=== PATIENT | male | born 1965 | race Caucasian/White ===

== ENCOUNTER 2016-07-25 18:37 | Emergency (ER) | payer OTHER ==
--- NOTE | 2016-07-25 18:43 | UCPHY ---
H & P Patient Type: New HPI/ROS: CHIEF COMPLAINT: Right 2nd finger laceration. HISTORY OF PRESENT ILLNESS: The patient is a 51-year-old male who presents with a right 2nd finger laceration secondary to fixing his car and getting his finger struck in the frame when the car slipped, [place] He applied pressure to the wound immediately and the bleeding has been well-controlled. He has no numbness, paresthesias, or weakness in the finger. He has full mobility and range of motion. He has no other complaints at this time. Through triage they noted he was tachycardic and remained so at the time of my clinical exam. In talking to him we cannot find any particular source of the tachycardia. He has had no for recent fluid loss such as nausea vomiting or diarrhea, no hematochezia melena or bright blood per rectum, no excessive thirst , no nocturia beyond his baseline as 1 would see if 52-year-old. He has been taking fluids well without any difficulties. Denies stimulants. He does note that he had a 1 drink maybe to the other night but usually drinks less than once weekly, without ever experiencing shakes REVIEW OF SYSTEMS: Constitutional: No fever, no chills. Though my tactile exam he does feel warm and elevate his temperature is 37.4 ENT: No sore throat. Cardiovascular: No chest pain, no palpitations, he is unaware of his faster rate of 126, which we did let settle down though he did not seem nurse and still remained 102,826. Respiratory: No cough, no shortness of breath, no wheezing. Gastrointestinal: No nausea vomiting or diarrhea. No abdominal pain. Genitourinary: No hematuria or frequency. Musculoskeletal: No back pain. Skin: Wound as above Neurological: No headache. 10 point ROS otherwise negative Past Medical/Surgical History: GERD, appendectomy. Social History: Does not abuse alcohol or drugs. Physical Exam: General Appearance: Alert, no distress. Afebrile. Normal phonation. No respiratory distress. Respiratory: There are no retractions, lungs are clear to auscultation. Cardiovascular: Tachycardic, Regular rate and rhythm, without murmur Neurological: Ox3. No motor weakness. Sensation intact. Gait nl. Musculoskeletal: No joint swelling. Extremities: Right hand: laceration along dorsal aspect of 2nd finger over middle phalanx. Sensation intact. Good range of motion. Strong extension to resistance. Psychiatric: Patient is oriented X 3, there is no agitation Constitutional: Initial Vital Signs Temperature (C) 36.7 C 07/25/16 18:47 Heart Rate 130 H 07/25/16 18:47 Respiratory Rate 20 07/25/16 18:47 Blood Pressure 144/107 H 07/25/16 18:47 O2 Sat (%) 92 07/25/16 18:47 O2 Delivery Mode Room Air Allergies/Adverse Reactions: No Known Allergies Allergy (Verified 07/25/16 18:50) Home Medications: Medication Instructions Recorded Cephalexin [Keflex (*)] 500 mg PO TID #9 cap 07/25/16 Tums 500MG (*) 07/25/16 Medical Decision Making - Diagnostics EKG Interpretation: The 12 lead EKG was interpreted by myself. See hard copy and/or "tracemaster" electronic copy for interpretation. Sinus tachycardia rate 121. Probable left atrial abnormality. Imaging: Imaging Impressions Chest X-Ray 07/25/16 19:36 Impression: Clear lungs. No acute process. X-ray interpretation reviewed as well as the films reviewed on the [facility] system Procedures: Procedure: Laceration repair. Verbal consent was obtained from the patient. The linear laceration on the right second finger was anesthetized a digital block with using 1% lidocaine without epinephrine. The wound was cleaned with standard ED protocol, draped and explored to its base with a gloved finger. There was indeed a small rent to the top of the dorsal tendon at the extensor duarte which was partial thickness. 0.5 mm. The wound was repaired in single layer technique. The wound repair was simple. The procedure was performed by myself. ED Course/Re-evaluation: 51-year-old male presents with right 2nd finger laceration secondary to cutting it on a car frame he was doing maintenance on. on exam his motor and sensory systems are intact. He has no weakness or numbness in the finger. 2-point discrimination is intact. He has strong extension in response to resistance. During the time of my exam his heart rate was 132, however he denied using stimulants other than caffeine and believes it is due to being in a doctor's office. His heart rate is regular on exam. I numbed the finger prior to cleaning and suturing (see Procedure note for details). 1937: After my suturing the patient has remained tachycardic. I did not approached him about a workup for cardiac causes at that time when he 1st became and as he was might settling down. Furthermore I was worried he might get a little agitated at that. It was only hours later when he became agitated as he had been here for so long. Furthermore I told him about starting some antibiotics but I was planning to give him a Keflex to go at discharge. It seemed to this he thought this was being for gotten. Nonetheless he agreed to the agreed to a cardiac workup including electrolytes, chest x-ray, and EKG. He reports that he gets up twice per night to urinate but denies recent increased polyuria or polydipsia that would be suggestive of diabetes. I reviewed the patient's laboratory studies. WBC elevated at 15k, It was at that time we found a low-grade fever of 37.4. However there is no focal symptomatology to suggest an underlying etiology. He had no dysuria. There is no cough or phlegm or shortness of breath. No sinus discomfort. Lactic acid negative at 1.7. I did take a carotid massage as well as Valsalva to seek help some rate slowing to perhaps see if this was flutter with 2-1 block but this was not helpful I reviewed the patient's chest x-ray independently on the PACS system. Please see Imaging section for radiologist report. - Data Points Laboratory Results: Laboratory Results 07/25/16 19:55 07/25/16 19:55 07/25/16 07/25/16 07/25/16 19:55 19:55 19:55 WBC RBC Hgb Hct MCV MCH MCHC RDW Plt Count MPV Neut % (Auto) Lymph % (Auto) Sumner % (Auto) Eos % (Auto) Baso % (Auto) Nucleat RBC Rel Count Absolute Neuts (auto) Absolute Lymphs (auto) Absolute Monos (auto) Absolute Eos (auto) Absolute Basos (auto) Absolute Nucleated RBC Immature Gran % Immature Gran # VBG Lactic Acid 1.7 mmol/L mmol/L (0.7-2.1) Sodium 142 mEq/L mEq/L (134-144) Potassium 3.9 mEq/L mEq/L (3.5-5.2) Chloride 104 mEq/L mEq/L (97-110) Carbon Dioxide 22 mEq/l mEq/l (22-31) Anion Gap 16 mEq/L mEq/L (8-16) BUN 20 mg/dL mg/dL (7-23) Creatinine 0.8 mg/dL mg/dL (0.7-1.3) Estimated GFR > 60 Glucose 114 mg/dL H mg/dL (70-100) Calcium 9.9 mg/dL mg/dL (8.5-10.4) TSH 0.979 uIU/mL uIU/mL (0.465-4.680) 07/25/16 19:55 WBC 15.38 10^3/uL H 10^3/uL (3.80-9.50) RBC 6.09 10^6/uL 10^6/uL (4.40-6.38) Hgb 17.9 g/dL H g/dL (13.7-17.5) Hct 50.2 % % (40.0-51.0) MCV 82.4 fL fL (81.5-99.8) MCH 29.4 pg pg (27.9-34.1) MCHC 35.7 g/dL g/dL (32.4-36.7) RDW 13.0 % % (11.5-15.2) Plt Count 302 10^3/uL 10^3/uL (150-400) MPV 10.7 fL fL (8.7-11.7) Neut % (Auto) 75.1 % H % (39.3-74.2) Lymph % (Auto) 17.8 % % (15.0-45.0) Sumner % (Auto) 5.3 % % (4.5-13.0) Eos % (Auto) 0.6 % % (0.6-7.6) Baso % (Auto) 0.5 % % (0.3-1.7) Nucleat RBC Rel Count 0.0 % % (0.0-0.2) Absolute Neuts (auto) 11.56 10^3/uL H 10^3/uL (1.70-6.50) Absolute Lymphs (auto) 2.74 10^3/uL 10^3/uL (1.00-3.00) Absolute Monos (auto) 0.81 10^3/uL H 10^3/uL (0.30-0.80) Absolute Eos (auto) 0.09 10^3/uL 10^3/uL (0.03-0.40) Absolute Basos (auto) 0.07 10^3/uL 10^3/uL (0.02-0.10) Absolute Nucleated RBC 0.00 10^3/uL 10^3/uL (0-0.01) Immature Gran % 0.7 % % (0.0-1.1) Immature Gran # 0.11 10^3/uL H 10^3/uL (0.00-0.10) VBG Lactic Acid Sodium Potassium Chloride Carbon Dioxide Anion Gap BUN Creatinine Estimated GFR Glucose Calcium TSH Medications Given: Discontinued Medications Cephalexin (Keflex 500 Mg Prepack#4) 1 btl TAKEHOME EDNOW ONE PRN Reason: Protocol Stop: 07/25/16 21:07 Last Admin: 07/25/16 21:13 Dose: 1 btl Diphtheria/Tetanus/Acell Pertussis (Boostrix) 0.5 ml IM .ONCE ONE Stop: 07/25/16 21:03 Last Admin: 07/25/16 21:05 Dose: 0.5 ml Ketorolac Tromethamine (Toradol) 15 mg IVP EDNOW ONE Stop: 07/25/16 21:05 Last Admin: 07/25/16 21:08 Dose: 15 mg Departure - Departure Disposition: Home, Routine, Self-Care Clinical Impression: Tachycardia Finger laceration Qualifiers: Encounter type: initial encounter Qualified Code(s): S61.219A - Laceration without foreign body of unspecified finger without damage to nail, initial encounter Condition: Good Instructions: Finger Laceration (ED) Additional Instructions: Keep wound clean with warm, soapy water. You can shower with the stitches but avoid prolonged immersion of stitches in water. Return in 10 days for suture removal. He will need to keep the finger splinted for 2 weeks, do not bend the finger in that time frame In the meantime if there is any redness extending beyond the wound itself or increased pain he need to come back at that may reflect an ongoing infection Do take extra fluids in the next 24 hours at that may slow down her heart rate. We will have the results for a thyroid study done by the time to arrive home, call us at that point in time to get the final results. Return if in the next day or 2 there is a more clear reason for the low-grade fever that had here such as a productive cough, body aches, ear pain, sore throat, difficulty urinating, or swollen glands. Tylenol and/or ibuprofen in combination will work well for the pain from the wound 2 finger Return in the meantime for any serious worsening of condition. Referrals: NONE *PRIMARY CARE P,. [Primary Care Provider] - As per Instructions Prescriptions: Cephalexin [Keflex (*)] 500 mg PO TID #9 cap - PQRS PQRS Measurement: N/A. Report Scribed for: Inderjit Sims Report Scribed by: Jordan Tim Date of Report: 07/25/16 Time of Report: 18:41
[2016-07-25 18:50] VITALS: TEMP 98.1
[2016-07-25 20:03] LABS: % IMMATURE GRANULYOCYTES 0.7 % (0.0-1.1); ABSOLUTE IMMATURE GRANULOCYTES 0.11 10^3/uL (0.00-0.10); ADD DIFF? NO; ADD MORPH? NO; ADD SCAN? NO; ATYPICAL LYMPHOCYTE FLAG 0 (0-99); FRAGMENT RBC FLAG 0 (0-99); HEMATOCRIT 50.2 % (40.0-51.0); HEMOGLOBIN 17.9 g/dL (13.7-17.5); LEFT SHIFT FLG 0 (0-99); LIPEMIA HEMOLYSIS FLAG 90 (0-99); MEAN CELL HEMOGLOBIN 29.4 pg (27.9-34.1); MEAN CELL HEMOGLOBIN CONCENTR. 35.7 g/dL (32.4-36.7); MEAN CELL VOLUME 82.4 fL (81.5-99.8); MEAN PLATELET VOLUME 10.7 fL (8.7-11.7); PLATELET CLUMPS FLAG 10 (0-99); PLATELET COUNT 302 10^3/uL (150-400); RED BLOOD CELL COUNT 6.09 10^6/uL (4.40-6.38)
[2016-07-25 20:14] LABS: ANION GAP 16 mEq/L (8-16); CALCIUM 9.9 mg/dL (8.5-10.4); CARBON DIOXIDE 22 mEq/l (22-31); CHLORIDE 104 mEq/L (97-110); CREATININE 0.8 mg/dL (0.7-1.3); GLOMERULAR FILTRATION RATE > 60; GLUCOSE 114 mg/dL (70-100); POTASSIUM 3.9 mEq/L (3.5-5.2); SODIUM 142 mEq/L (134-144)
--- NOTE | 2016-07-25 20:21 | CPEKG ---
Heart Rate: 121 RR Interval: 496 P-R Interval: 180 QRSD Interval: 88 QT Interval: 296 QTC Interval: 420 P [place]: 37 QRS [place]: 30 T Wave [place]: 42 EKG Severity - BORDERLINE ECG - EKG Impression: SINUS TACHYCARDIA EKG Impression: PROBABLE LEFT ATRIAL ABNORMALITY Electronically Signed By: Inderjit Sims 26-Jul-2016 00:20:35
[2016-07-25] MEDS ORDERED: TDAP ADULT 0.5 ML INJ (BOOSTRIX) IM ONE (21:02)
[2016-07-25] MEDS ORDERED: KETOROLAC 15 MG/1 ML SDV IVP ONE (21:04)
[2016-07-25] MEDS ORDERED: CEPHALEXIN 500MG PREPACK#4 BTL TAKEHOME ONE (21:06)
[2016-07-25 23:16] VITALS: BP 142/96; PULSE 98; RESP 18; O2SAT 94
== END 2016-07-25 21:21 | disposition home or self-care (01) ==
LOC: CED 18:37
PROC: 0HQFXZZ Repair Right Hand Skin, External Approach (ICD-10-PCS; principal; 2016-07-25)
DX: S61.210A Laceration without foreign body of right index finger without damage to nail, initial encounter (principal); R00.0 Tachycardia, unspecified; Y92.019 Unspecified place in single-family (private) house as the place of occurrence of the external cause; W22.09XA Striking against other stationary object, initial encounter; Y93.89 Activity, other specified; Y99.8 Other external cause status
CPT/HCPCS: 71020-PO; 80048-PO; 83605-PO; 84443-PO; 85025-PO; 96374-PO; G0463-PO; J1885